=== PATIENT | female | born 1945 | race Caucasian/White ===

== ENCOUNTER 2018-08-31 19:13 | Emergency (ER) | payer OTHER, MEDICARE ==
--- NOTE | 2018-08-31 19:38 | EDPHY ---
H & P Stated Complaint: RIGHT KNEE SWOLLEN AND "BUCKLING", FEARS A BLOOD CLOT Time Seen by Provider: 08/31/18 19:33 HPI/ROS: CHIEF COMPLAINT: The right knee swelling HISTORY OF PRESENT ILLNESS: The patient is a 73-year-old female who comes to the emergency department complaining of right knee swelling for last several days. She states that her massage therapist suggested she come here to be ruled out for a blood clot. She also has noticed that her knee zamzam every once in a while for the last several weeks. She has not fallen. She denies significant pain. No erythema. No fevers. Severity: Moderate Modifying factors: None REVIEW OF SYSTEMS: Constitutional: denies: chills, fever, recent illness, recent injury EENTM: denies: blurred vision, double vision, nose congestion Respiratory: denies: cough, shortness of breath Cardiac: denies: chest pain, irregular heart rate, lightheadedness, palpitations Gastrointestinal/Abdominal: denies: abdominal pain, diarrhea, nausea, vomiting, blood streaked stools Genitourinary: denies: dysuria, frequency, hematuria, pain Musculoskeletal: See HPI Skin: denies: lesions, rash, jaundice, bruising Neurological: denies: headache, numbness, paresthesia, tingling, dizziness, weakness Hematologic/Lymphatic: denies: blood clots, easy bleeding, easy bruising Immunologic/allergic: denies: HIV/AIDS, transplant 10 systems reviewed and negative except as noted EXAM: GENERAL: Well-appearing, well-nourished and in no acute distress. HEAD: Atraumatic, normocephalic. EYES: Pupils equal round and reactive to light, extraocular movements intact, sclera anicteric, conjunctiva are normal. ENT: TMs normal, nares patent, oropharynx clear without exudates. Moist mucous membranes. NECK: Normal range of motion, supple without lymphadenopathy or JVD. LUNGS: Breath sounds clear to auscultation bilaterally and equal. No wheezes rales or rhonchi. HEART: Regular rate and rhythm without murmurs, rubs or gallops. ABDOMEN: Soft, nontender, normoactive bowel sounds. No guarding, no rebound. No masses appreciated. BACK: No CVA tenderness, no spinal tenderness, step-offs or deformities EXTREMITIES: Patient has a joint effusion to her right knee. Nontender. Not warm. No erythema. NEUROLOGICAL: Cranial nerves II through XII grossly intact. Normal speech, normal gait. 5/5 strength, normal movement in all extremities, normal sensation , normal reflexes PSYCH: Normal mood, normal affect. SKIN: Warm, dry, normal turgor, no visible rashes or lesions. Source: Patient Exam Limitations: No limitations - Personal History Current Tetanus/Diphtheria Vaccine: Yes - Medical/Surgical History Hx Asthma: No Hx Chronic Respiratory Disease: No Hx Diabetes: No Hx Cardiac Disease: No Hx Renal Disease: No Hx Cirrhosis: No Hx Alcoholism: No Hx HIV/AIDS: No Hx Splenectomy or Spleen Trauma: Yes Other PMH: Hodgkins Lymphoma(age 27), (age52)2 kinds of cancer-type unknown, SPLEENECTOMY - Family History Significant Family History: No pertinent family hx - Social History Smoking Status: Never smoked Alcohol Use: Sober Drug Use: None Constitutional: Initial Vital Signs Temperature (C) 36.5 C 08/31/18 19:16 Heart Rate 88 08/31/18 19:16 Respiratory Rate 20 08/31/18 19:16 Blood Pressure 135/95 H 08/31/18 19:16 O2 Sat (%) 96 08/31/18 19:16 O2 Delivery Mode Room Air Allergies/Adverse Reactions: No Known Allergies Allergy (Unverified 08/31/18 19:15) Home Medications: Medication Instructions Recorded Supplements 08/31/18 Medical Decision Making Procedures: knee aspiration: Right knee aspirated under sterile conditions, 30 cc of bloody fluid obtained. No purulence. Will be sent to the lab for cell count and cultures. ED Course/Re-evaluation: I was able to aspirate the patient's knee with ultrasound guidance. I obtained 30 cc of bloody fluid that was otherwise not purulent appearing. I doubt infection. I suspect that she has a internal ligamentous injury that is causing some minor instability and hemarthrosis. I will refer her to Ortho for further workup and likely MRI and treatment. she feels much better after the arthrocentesis. She agrees with this plan and declines further workup or testing at this time. Differential Diagnosis: Partial list of the Differential diagnosis considered include but were not limited to; hemarthrosis, septic joint, bursitis and although unlikely based on the history and physical exam, I also considered DVT, fracture. I discussed these differential diagnoses and the plan with the patient as well as the usual and expected course. The patient understands that the diagnosis is provisional and that in medicine we are not always correct and that further workup is often warranted. Usual and customary warnings were given. All of the patient's questions were answered. The patient was instructed to return to the emergency department should the symptoms at all worsen or return, otherwise to followup with the physician as we discussed. - Data Points Laboratory Results: 08/31/18 20:00 Synovial Source Pending Synovial Color Pending Synovial Appearance Pending Synovial WBC Pending Synovial RBC Pending Synovial LDH Pending Microbiology Results: MICROBIOLOGY 08/31/18 20:00 Knee - Aspirate Gram Stain - Final Departure - Departure Disposition: Home, Routine, Self-Care Clinical Impression: Right knee buckling, Effusion, right knee Condition: Fair Instructions: Swollen Knee Joint (ED) Referrals: Kimberlyn Llamas MD [Primary Care Provider] - As per Instructions Carlos Robles MD [Medical Doctor] - 5-7 days, call for appt.
[2018-08-31 20:30] VITALS: BP 161/104
== END 2018-08-31 20:25 | disposition home or self-care (01) ==
PROC: 0S9C3ZX Drainage of Right Knee Joint, Percutaneous Approach, Diagnostic (ICD-10-PCS; principal; 2018-08-31)
DX: M25.461 Effusion, right knee (principal)

== ENCOUNTER → 2018-10-11 | Outpatient (CLI) | payer OTHER, MEDICARE ==
[~2018-10-11] MED LIST: BUPIVACAINE 0.25% 30 ML SDV ONE; LIDOCAINE 1% 300 MG/30 ML SDV ONE
== END ==
LOC: FIMAGING 08:07
PROVIDERS: ATTEND Orthopaedic Surgery Sports Medicine
PROC: 0R9 Upper Joints, Drainage (ICD-10-PCS; principal; 2018-10-11)
DX: M25.411 Effusion, right shoulder (principal)